=== PATIENT | male | born 1980 | race Two or more races ===

== ENCOUNTER 2019-02-24 18:04 | Emergency (ER) | payer OTHER ==
[~2019-02-24] VITALS: Ht 167.6 cm; Wt 90.0 kg
[~2019-02-24 18:04] MED LIST: AMPH10CA8 PO; ATOR40TA70 MT; B50 MT; CLON0.1T MT; DIVA250T4 MT; EMPA25TA MT; LISI-604 MT; METF-517 MT; RISP2TAB22 MT; TRAZ150T78 MT
[2019-02-24] MEDS ORDERED: SODIUM CHLORIDE 0.9% 1,000 ML IV ONE (20:11)
[2019-02-24] MEDS ORDERED: LORAZEPAM 2MG/ML CPJ IV STA (20:11)
[2019-02-24] MEDS ORDERED: LORAZEPAM 2MG/ML CPJ IM ONE (20:15)
[2019-02-24] MEDS ORDERED: OLANZAPINE 10 MG/VIAL IM ONE (20:15)
[2019-02-24 21:34] LABS: EOSINOPHILS % 3.3 % (0.0-5.0); HEMATOCRIT. 48.3 % (42.0-52.0); HEMOGLOBIN. 16.2 g/dL (14.0-18.0); LYMPHOCYTES % 30.2 % (20.0-50.0); MEAN CORPUSCULAR HEMOGLOBIN 30.8 pg (28.0-32.0); MEAN CORPUSCULAR VOLUME 91.7 fL (80.0-94.0); MEAN PLATELET VOLUME 8.7 fl (7.4-10.4); MONOCYTES % 7.3 % (2.0-8.0); NEUTROPHILS % 58.2 % (40.0-76.0); PLATELET 215 x1000/uL (130-400); RED BLOOD CELL COUNT 5.27 mill/uL (4.7-6.1); RED CELL DISTRIBUTION WIDTH 14.6 % (11.6-14.6)
[2019-02-24 21:40] LABS: CHLORIDE 102 mEq/L (98-107)
[2019-02-24 21:44] LABS: ETHANOL BLOOD < 10 mg/dL
[2019-02-24 21:49] LABS: CREATINE KINASE 195 IU/L (39-308)
[2019-02-24] MEDS ORDERED: LORAZEPAM 2MG/ML CPJ IV ONE (22:00)
[2019-02-25] MEDS ORDERED: LORAZEPAM 2MG/ML CPJ IV ONE ×2 (06:30→23:15)
[2019-02-25] MEDS ORDERED: LORAZEPAM 2MG/ML CPJ IM ONE ×2 (14:15→21:15)
[2019-02-26 02:09] LABS: CLARITY URINE CLEAR (CLEAR); COLOR URINE YELLOW (YELLOW); KETONES URINE NEGATIVE (NEGATIVE); LEUKOCYTE ESTERASE URINE NEGATIVE (NEGATIVE); NITRITE URINE NEGATIVE (NEGATIVE); OCCULT BLOOD URINE NEGATIVE (NEGATIVE); PH URINE 6.5 (4.5-8.0); PROTEIN URINE NEGATIVE (NEGATIVE); SPECIFIC GRAVITY URINE 1.037 (1.005-1.030)
[2019-02-26 02:59] LABS: *COCAINE SCREEN URINE NEGATIVE (NEGATIVE); METHADONE URINE SCREEN NEGATIVE (NEGATIVE); OPIATES URINE SCREEN NEGATIVE (NEGATIVE)
[2019-02-26 03:00] LABS: *AMPHETAMINES SCREEN URINE NEGATIVE (NEGATIVE); *BARBITURATES SCREEN URINE NEGATIVE (NEGATIVE); *BENZODIAZEPINES SCREEN URINE NEGATIVE (NEGATIVE); CANNABINOID URINE SCREEN NEGATIVE (NEGATIVE); PHENCYCLIDINE URINE SCREEN NEGATIVE (NEGATIVE)
[2019-02-26 15:45] VITALS: BP 144/98
== END 2019-02-26 16:36 | disposition home or self-care (01) ==
LOC: ER 18:04
DX: R45.1 Restlessness and agitation (principal); G93.40 Encephalopathy, unspecified; R45.6 Violent behavior; F84.0 Autistic disorder; Z78.1 Physical restraint status
CPT/HCPCS: 36415; 80053; 80305; 80307; 80320; 80329; 81003; 82550; 83690; 84443; 85025; 93005; 96372; 96374; 96376; 99284; J2060; J3490; J7030; Z7610; G0480